=== PATIENT | female | born 1965 | race African-American/Black ===

== ENCOUNTER 2016-07-14 08:06 | Observation (INO) | payer MEDICARE, OTHER ==
[~2016-07-14] VITALS: Ht 167.6 cm; Wt 108.4 kg
[~2016-07-14 08:06] MED LIST: BUPIVACAINE-EPI 0.25%-1:200000 MPF 30 ML VIAL. ONE; CALC-67 PO; CHOL200027 PO; CLINDAMYCIN 900MG PREMIX 50 ML IV ONE; CYAN10005 PO; ESTROGENS, CONJ VAGINAL CREAM 30GM TUBE. ONE; ESTROGENS, CONJ VAGINAL CREAM 30GM TUBE. VG ONE; HYDR-2666 PO; HYDR200T PO; ISOSULFAN BLUE 50 MG/5 ML VIAL. SQ ONE; LIDOCAINE 1%/EPI 1:100,000 20 ML VIAL. ONE; MULT-245 PO; PRED1TAB3 PO
[2016-07-14 08:25] LABS: NEG OBC UR NEG; POS OBC UR POS
[2016-07-14] MEDS ORDERED: FERR-26 PO (08:29)
[2016-07-14] MEDS ORDERED: BELI400V IV (08:29)
[2016-07-14] MEDS: IV RINGERS,LACTATED 1000ML 1,000 ML IV SCH ×2 (08:45→22:46)
--- NOTE | 2016-07-14 09:25 | EKG ---
[facility] [address] [place] [address] Test Date: 2016-07-14 Test Time: 09:25:43 Pat Name: MATTY LUA Department: Room: Gender: F Anesthesiologist: CHE : 1965 Requested By: KENDALL SHAFFER Order Number: [id number] Reading MD: Montrell Pichardo Measurements Intervals [place] Rate: 70 P: 41 LA: 62 QRS: -10 QRSD: 184 T: 2 QT: 490 QTc: 533 Interpretive Statements SINUS RHYTHM Electronically Signed On 07-18-2016 14:11:24 CDT by Montrell Pichardo
[2016-07-14 09:26] LABS: CALCIUM 9.1 mg/dL (8.5-10.1); GFR 71.3; POTASSIUM 3.5 mmol/L (3.5-5.1)
[2016-07-14 09:32] LABS: ALBUMIN 3.3 g/dL (3.4-5.0); ALBUMIN/GLOBULIN RATIO 0.9 (1.0-1.7); TOTAL BILIRUBIN 0.2 mg/dL (0.2-1.0); TOTAL PROTEIN 7.1 g/dL (6.4-8.2)
[2016-07-14 09:37] LABS: BASO # 0.1 x10^3/uL (0.0-0.2); BASO % 1 % (0-3); EOS % 2 % (0-3); HEMATOCRIT 33.9 % (36.0-47.0); HEMOGLOBIN 11.3 g/dL (12.0-15.5); LYMPH # 1.4 x10^3/uL (1.0-4.8); LYMPH % 15 % (24-48); MEAN CORPUSCULAR HEMOGLOBIN 29 pg (25-35); MEAN CORPUSCULAR HGB CONC 33 g/dL (31-37); MEAN CORPUSCULAR VOLUME 88 fL (79-100); MONO % 10 % (0-9); NEUT % 72 % (31-73); PLATELET COUNT 241 x10^3/uL (140-400); RED BLOOD COUNT 3.88 x10^6/uL (3.50-5.40); RED CELL DISTRIBUTION WIDTH 12.7 % (11.5-14.5); WHITE BLOOD COUNT 9.7 x10^3/uL (4.0-11.0)
[2016-07-14] MEDS ORDERED: PROPOFOL 20 ML IV ONE ×2 (10:53→13:16)
[2016-07-14] MEDS ORDERED: LIDOCAINE 2% PF Vial for OR 5 ML VIAL. ONE (10:53)
[2016-07-14] MEDS ORDERED: ONDANSETRON PF 4 MG/2 ML VIAL. ONE (10:53)
[2016-07-14] MEDS ORDERED: DEXAMETHASONE SOD PHOS 20 MG/5 ML VIAL. ONE (10:53)
[2016-07-14] MEDS ORDERED: SEVOFLURANE > 120 MINUTES. IH ONE (10:53)
[2016-07-14] MEDS ORDERED: HYDROCORTISONE SOD SUCC/PF 100 MG/2 ML VIAL. ONE (10:54)
[2016-07-14] MEDS ORDERED: ROCURONIUM 50 MG/5 ML VIAL. ONE (10:54)
[2016-07-14] MEDS ORDERED: fentaNYL PF VIAL 250 MCG/5 ML VIAL ONE (10:54)
[2016-07-14] MEDS ORDERED: GLYCOPYRROLATE 1 MG/5 ML VIAL. ONE (12:57)
[2016-07-14] MEDS ORDERED: NEOSTIGMINE METHYLSULFATE 5 MG/5 ML SYRINGE. ONE (12:57)
--- NOTE | 2016-07-14 13:07 | PDOC ---
BRIEF OPERATIVE NOTE Pre-Op Diagnosis 1. Fibroids 2. Menorrhagia Post-Op Diagnosis Same Procedure Performed LAVH & BSO Surgeon Dr. Dennis Anesthesia Type: General Blood Loss 50 ml Specimens Obtained uterus, cervix, chidi. fallopian tubes and ovaries Findings enlarged, fibroid uterus; nml fallopian tubes and ovaries chidi. Complications none Additional Remarks pt. KENDALL Lopez Jr, MD July 14, 2016 13:07
[2016-07-14] MEDS ORDERED: diphenhydrAMINE HCL 25 MG CAPSULE PO PRN (13:15)
[2016-07-14] MEDS ORDERED: PROCHLORPERAZINE 10 MG/2 ML VIAL. IV PRN ×2 (13:15→13:45)
[2016-07-14] MEDS ORDERED: ZOLPIDEM 5 MG TABLET. PO PRN (13:15)
[2016-07-14] MEDS ORDERED: CALCIUM CARBONATE 500 MG TAB.CHEW PO PRN (13:15)
[2016-07-14] MEDS ORDERED: diphenhydrAMINE 50 MG/ML VIAL IV PRN (13:15)
[2016-07-14] MEDS ORDERED: 0.9 % SODIUM CHLORIDE 10 ML DISP.SYRIN. IV PRN (13:15)
[2016-07-14] MEDS ORDERED: SIMETHICONE 80 MG TAB.CHEW PO PRN (13:15)
[2016-07-14] MEDS ORDERED: ONDANSETRON PF 4 MG/2 ML VIAL. IV PRN ×2 (13:15→13:45)
[2016-07-14] MEDS ORDERED: DEXTROSE 50% 25 GM / 50ML DISP.SYRIN. IV PRN (13:15)
[2016-07-14] MEDS ORDERED: IV RINGERS,LACTATED 1000ML 1,000 ML IV SCH (13:34)
[2016-07-14] MEDS ORDERED: fentaNYL PF VIAL 100 MCG/2 ML VIAL ONE (13:35)
[2016-07-14] MEDS: fentaNYL PF VIAL 100 MCG/2 ML VIAL IV PRN ×4 (13:40→14:19)
[2016-07-14] MEDS ORDERED: HYDROmorphone 2 MG/ML VIAL IV PRN (13:45)
[2016-07-14] MEDS ORDERED: LIDOCAINE 1% 1 ML SYRINGE. ID PRN (13:45)
[2016-07-14] MEDS ORDERED: fentaNYL PF VIAL 100 MCG/2 ML VIAL IV PRN (13:45)
[2016-07-14] MEDS ORDERED: MORPHINE SULFATE 2 MG/ML DISP.SYRIN. IV PRN (13:45)
[2016-07-14] MEDS: KETOROLAC TROMETHAMINE 30 MG/ML INJ. IV PRN ×2 (14:13→20:31)
[2016-07-14 14:45] VITALS: BP 78/50
[2016-07-14 15:00] VITALS: BP 84/56
[2016-07-14 15:20] VITALS: BP 92/58
[2016-07-14 15:45] VITALS: BP 101/64
[2016-07-14 16:45] VITALS: BP 110/66
[2016-07-14] MEDS: oxyCODONE/APAP 5/325 1 TAB TABLET PO PRN (17:45)
--- NOTE | 2016-07-14 18:50 | OP ---
DATE OF SURGERY: 07/14/2016 PREOPERATIVE DIAGNOSES: 1. Fibroids. 2. Menorrhagia. POSTOPERATIVE DIAGNOSES: 1. Fibroids. 2. Menorrhagia. PROCEDURE: LAVH and BSO. SURGEON: Dr. Kendall Dennis. ANESTHESIA: GETA. ESTIMATED BLOOD LOSS: 50 mL. COMPLICATIONS: None. FINDINGS: Enlarged fibroid uterus, normal fallopian tubes and ovaries bilaterally. SUMMARY: A 51-year-old female with history of lupus and also diagnosed with multiple fibroids as well as menorrhagia. The patient is not a candidate for hormonal treatment due to this condition. The patient also has family history of breast cancer. The patient was counseled on need for LAVH, BSO. Risks, benefits and expectations and voiced clear understanding to proceed. DESCRIPTION OF PROCEDURE: The patient was taken to surgery suite and placed in dorsolithotomy position and prepped with Betadine solution for vaginal prep and ChloraPrep for abdominal prep. After adequate anesthesia, bivalve speculum was placed vaginally. Anterior lip of the cervix grasped with a single tooth tenaculum. The Linio uterine manipulator was then placed. The bivalve speculum was removed. Attention was now placed on abdomen. Small transverse skin incision was made just below the umbilicus. The Veress needle was then placed through the infraumbilical incision site. The abdomen was allowed to insufflate up to 1-1/2 liters of CO2 gas. The Veress needle was then removed, 5-mm trocar was placed. The scope was positioned. The uterus was enlarged with multiple fibroids, fallopian tubes and ovaries appeared normal bilaterally. Two additional incisions made in the left lower quadrant, which 5 mm trocars were placed. With the aid of graspers and EnSeal device, the left round ligament was coagulated and dissected. The left infundibulopelvic ligament was coagulated and dissected. Left broad ligament was coagulated and dissected. Same process took place at the right adnexa. Bladder flap was created with blunt dissection along with EnSeal device. Suction irrigation was utilized to verify good hemostasis. We then proceeded vaginally. Weighted speculum and curved [place] placed vaginally. The anterior and posterior lip of the cervix grasped with single tooth tenaculum. Cervix was injected with lidocaine with epinephrine in a circumferential manner. Bovie cautery was utilized to circumscribe the cervix. The vaginal mucosa was dissected away from the lower uterine segment using a moist Ray-Roxy. The cardinal ligaments were clamped bilaterally, cut, and suture ligated with curved Giselle clamps. The posterior cul-de-sac was entered bluntly and was entered sharply with curved Haile scissors. The long weighted speculum was placed. The anterior cul-de-sac was entered bluntly. The uterosacral ligaments were then clamped bilaterally, cut, and suture ligated. The cervix was then bivalved and the remaining portion of the uterus, fallopian tubes and ovaries were removed in their entirety. A modified Bueno's culdoplasty was performed incorporating the uterosacral ligaments bilaterally. The remainder of the vaginal cuff was reapproximated using 2-0 Vicryl suture in a [id number] manner. Moist vaginal packing was placed. Attention was once again placed on abdomen. The abdomen was once again insufflated up to 1-1/2 liters CO2 gas. The vaginal cuff was visualized and was hemostatic. Suction irrigation was utilized to verify good hemostasis along with the vaginal cuff as well as the other pedicles. The ureters were functioning properly. A small amount of normal saline was left in posterior cul-de-sac. The trocars were removed under direct visualization. The abdomen was allowed to deflate as much as possible along with mechanical manipulation. The three skin incisions were reapproximated using 4-0 Vicryl suture in subcuticular manner. 0.25% Marcaine with epinephrine was injected at each incision site. The patient tolerated the procedure well and was taken to recovery room in stable condition. Sponge and needle counts correct x 3. KENDALL DENNIS MD DR: SHREE/shayne JOB#: [id number] / [id number]
[2016-07-14] MEDS: GABAPENTIN 300 MG CAPSULE. PO SCH (22:00)
[2016-07-14 22:38] VITALS: BP 143/85
[2016-07-15 02:32] VITALS: BP 139/92
[2016-07-15 04:25] LABS: BASO % 0 % (0-3); EOS % 0 % (0-3); HEMATOCRIT 30.9 % (36.0-47.0); HEMOGLOBIN 10.1 g/dL (12.0-15.5); LYMPH # 1.4 x10^3/uL (1.0-4.8); LYMPH % 14 % (24-48); MEAN CORPUSCULAR HEMOGLOBIN 29 pg (25-35); MEAN CORPUSCULAR HGB CONC 33 g/dL (31-37); MEAN CORPUSCULAR VOLUME 90 fL (79-100); MONO % 9 % (0-9); NEUT % 77 % (31-73); PLATELET COUNT 194 x10^3/uL (140-400); RED BLOOD COUNT 3.44 x10^6/uL (3.50-5.40); RED CELL DISTRIBUTION WIDTH 12.6 % (11.5-14.5); WHITE BLOOD COUNT 9.8 x10^3/uL (4.0-11.0)
[2016-07-15] MEDS: oxyCODONE/APAP 5/325 1 TAB TABLET PO PRN ×2 (05:47→11:46)
[2016-07-15] MEDS: GABAPENTIN 300 MG CAPSULE. PO SCH (05:48)
[2016-07-15 05:56] VITALS: BP 134/87
--- NOTE | 2016-07-15 09:00 | PDOC ---
SURGICAL PROGRESS NOTE Subjective Pt. feeling well. Pain controlled. SHe is tolerating regular diet. Vital Signs Vital Signs Date Time Temp Pulse Resp B/P (MAP) Pulse Ox O2 Delivery O2 Flow Rate FiO2 07/15/16 05:56 97.9 91 18 134/87 (103) 98 Room Air 97.9 07/14/16 14:45 2.0 I&O Intake and Output 07/15/16 06:59 Intake Total 4550 ml Output Total 1500 ml Balance 3050 ml Intake Oral 1500 ml IV Total 2000 ml Other 1050 ml Output Urine Total 1500 ml PATIENT HAS A BROWN: No General: Alert, Oriented X3, Cooperative HEENT: Atraumatic Lungs: Clear to auscultation Heart: Regular rate Abdomen: Normal bowel sounds, Soft, No tenderness Extremities: No edema Psych/Mental Status: Mental status NL Labs Laboratory Tests Test 07/14/16 08:20 07/14/16 08:45 07/14/16 08:48 07/15/16 03:40 Urine Test Negative (NEG) Sodium Level 145 mmol/L (136-145) Potassium Level 3.5 mmol/L (3.5-5.1) Chloride Level 106 mmol/L (98-107) Carbon Dioxide Level 28 mmol/L (21-32) Anion Gap 11 (6-14) Blood Urea Nitrogen 11 mg/dL (7-20) Creatinine 1.0 mg/dL (0.6-1.0) Estimated GFR (Cockcroft-Gault) 71.3 BUN/Creatinine Ratio 11 (6-20) Glucose Level 82 mg/dL (70-99) Calcium Level 9.1 mg/dL (8.5-10.1) Total Bilirubin 0.2 mg/dL (0.2-1.0) Aspartate Amino Transf (AST/SGOT) 22 U/L (15-37) Alanine Aminotransferase (ALT/SGPT) 19 U/L (14-59) Alkaline Phosphatase 73 U/L (46-116) Total Protein 7.1 g/dL (6.4-8.2) Albumin 3.3 g/dL (3.4-5.0) Albumin/Globulin Ratio 0.9 (1.0-1.7) White Blood Count 9.7 x10^3/uL (4.0-11.0) 9.8 x10^3/uL (4.0-11.0) Red Blood Count 3.88 x10^6/uL (3.50-5.40) 3.44 x10^6/uL (3.50-5.40) Hemoglobin 11.3 g/dL (12.0-15.5) 10.1 g/dL (12.0-15.5) Hematocrit 33.9 % (36.0-47.0) 30.9 % (36.0-47.0) Mean Corpuscular Volume 88 fL (79-100) 90 fL (79-100) Mean Corpuscular Hemoglobin 29 pg (25-35) 29 pg (25-35) Mean Corpuscular Hemoglobin Concent 33 g/dL (31-37) 33 g/dL (31-37) Red Cell Distribution Width 12.7 % (11.5-14.5) 12.6 % (11.5-14.5) Platelet Count 241 x10^3/uL (140-400) 194 x10^3/uL (140-400) Neutrophils (%) (Auto) 72 % (31-73) 77 % (31-73) Lymphocytes (%) (Auto) 15 % (24-48) 14 % (24-48) Monocytes (%) (Auto) 10 % (0-9) 9 % (0-9) Eosinophils (%) (Auto) 2 % (0-3) 0 % (0-3) Basophils (%) (Auto) 1 % (0-3) 0 % (0-3) Neutrophils # (Auto) 7.0 x10^3uL (1.8-7.7) 7.6 x10^3uL (1.8-7.7) Lymphocytes # (Auto) 1.4 x10^3/uL (1.0-4.8) 1.4 x10^3/uL (1.0-4.8) Monocytes # (Auto) 1.0 x10^3/uL (0.0-1.1) 0.8 x10^3/uL (0.0-1.1) Eosinophils # (Auto) 0.2 x10^3/uL (0.0-0.7) 0.0 x10^3/uL (0.0-0.7) Basophils # (Auto) 0.1 x10^3/uL (0.0-0.2) 0.0 x10^3/uL (0.0-0.2) Laboratory Tests Test 07/15/16 03:40 White Blood Count 9.8 x10^3/uL (4.0-11.0) Red Blood Count 3.44 x10^6/uL (3.50-5.40) Hemoglobin 10.1 g/dL (12.0-15.5) Hematocrit 30.9 % (36.0-47.0) Mean Corpuscular Volume 90 fL (79-100) Mean Corpuscular Hemoglobin 29 pg (25-35) Mean Corpuscular Hemoglobin Concent 33 g/dL (31-37) Red Cell Distribution Width 12.6 % (11.5-14.5) Platelet Count 194 x10^3/uL (140-400) Neutrophils (%) (Auto) 77 % (31-73) Lymphocytes (%) (Auto) 14 % (24-48) Monocytes (%) (Auto) 9 % (0-9) Eosinophils (%) (Auto) 0 % (0-3) Basophils (%) (Auto) 0 % (0-3) Neutrophils # (Auto) 7.6 x10^3uL (1.8-7.7) Lymphocytes # (Auto) 1.4 x10^3/uL (1.0-4.8) Monocytes # (Auto) 0.8 x10^3/uL (0.0-1.1) Eosinophils # (Auto) 0.0 x10^3/uL (0.0-0.7) Basophils # (Auto) 0.0 x10^3/uL (0.0-0.2) Assessment/Plan A: POD#1 s/p LAVH & BSO P: D/c home. Problems: KENDALL SHAFFER Jr, MD July 15, 2016 09:00
--- NOTE | 2016-07-15 09:01 | DISCH ---
DISCHARGE INSTRUCTIONS Condition on Discharge Condition on Discharge: Stable Activity After Discharge Activity Instructions for Disc: Activity as tolerated Lifting Instructions after Dis: No heavy lifting Driving Instructions after Dis: No driving for 2 weeks Diet after Discharge Diet after Discharge: Regular Contacting the DRLotus after DC Call your doctor for: Concerns you may have Follow-Up Follow up with: Dr. Dennis in 2 weeks. KENDALL DENNIS Jr, MD July 15, 2016 09:01
[2016-07-15] MEDS ORDERED: OXYC-323 PO (09:03)
[2016-07-15] MEDS ORDERED: IBUP-1060 PO (09:03)
[2016-07-15] MEDS ORDERED: DOCU-27 PO (09:03)
[2016-07-15 11:30] VITALS: BP 148/89
--- NOTE | 2016-07-18 15:23 | PATHOLOGY ---
PATHOLOGY REPORT * * * * * * * * FINAL DIAGNOSIS: Uterine corpus with bilateral attached fallopian tubes and ovaries and separate detached uterine cervix, laparoscopic assisted vaginal hysterectomy with bilateral salpingo-oophorectomy: - Leiomyomas, uterine corpus, intramural, multiple, the largest measuring 2.7 cm in greatest dimension (uterine weight 229 grams). - Chronic cervicitis with focal squamous metaplasia. - Endometrial polyps. - Proliferative endometrium. - Adenomyosis, uterine corpus, focal. - Cystic [place] rest of right fallopian tube. - Focal endometriosis of left ovary. COMMENT: There is no evidence of malignancy. (JPM:mgzina; d/t: 07/18/16) REPORT ELECTRONICALLY SIGNED BY: Clark Pineda M.D. DATE/TIME: 07/18/2016 15:23 * * * * * * * * GROSS PATHOLOGY: The specimen is received in formalin labeled "Matty Wagner, uterus, cervix, bilateral tubes and ovaries "". Received is a 174 g, 7.6 x 7.6 x 5.9 cm uterine corpus with attached adnexa weighing 5 and 6 g, left and right, respectively, and separately submitted cervical stump weighing 55 g. The uterine serosa is pink-ness, smooth and glistening in appearance. The specimen is oriented using adnexal placement. The specimen is opened laterally to reveal a triangular-appearing endometrial cavity measuring 2.1 cm in length by 2.7 cm in width. The endometrium is pale ness, glistening in appearance and measures 0.1 cm in thickness displaying multiple polyps ranging in size from 0.6 to 1.0 cm. Serial sectioning reveals a ness-pink, trabeculated myometrium measuring up to 4.6 cm in thickness displaying multiple intramural fibroids ranging in size from 1.8 to 2.7 cm. The cervical stump has been previously laterally incised and measures 6.8 x 3.2 x 3.2 cm upon reconstruction. The 1.0 cm cervical os is surrounded by pale ness to ness-brown, smooth ectocervical mucosa. The specimen is oriented using the peritoneal reflection and the anterior paracervical margin is inked black. The specimen is further opening to reveal a red-ness endocervical canal measuring 5.5 cm in length. The left adnexa consists of a fimbriated fallopian tube measuring 4.4 cm in length by 0.5 cm in diameter attached to a 2.8 x 1.5 x 1.0 cm ovary. The fallopian tube appears grossly unremarkable and sectioning through the ovary reveals pale ness, normal ovarian stroma. The right adnexa consists of a fimbriated fallopian tube measuring 5.4 cm in length by 0.5 cm in diameter attached to a 2.0 x 1.3 x 1.1 cm ovary. The fallopian tube displays a single attached paratubal cyst measuring 0.1 cm and appears otherwise grossly unremarkable. Sectioning through the ovary reveals pale ness, normal ovarian stroma. 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 (CAA; 07/15/2016) INITIAL CPT CODE(S): A; 55415 Professional services performed [place] [address] Technical services performed by [facility] at [address] [place] [address]. SPECIMEN(S) RECEIVED: A.Uterus,cervix, bilateral tubes, and ovaries CLINICAL HISTORY: None provided PATIENT: MATTY WAGNER /AGE: 12 1965 (Age: 51) PATIENT #: [id number] ALT CASE #: SPECIMEN COLLECTION DATE: 07/14/2016 SPECIMEN RECEIVED DATE: 07/14/2016 [facility] - [address] [place] [address] - PHONE: [phone] * * * END OF REPORT * * *
== END 2016-07-15 12:00 | disposition home or self-care (01) ==
LOC: SURG 08:06 → 3 NORTH 13:25
PROVIDERS: ADMIT Obstetrics & Gynecology; ATTEND Obstetrics & Gynecology
DX: N92.0 Excessive and frequent menstruation with regular cycle (principal); D25.9 Leiomyoma of uterus, unspecified
CPT/HCPCS: 36415; 58552; 80053; 81025; 85027; 86850; 86900; 86901; 93005; 96374; A4215; G0378; G0379; J1100; J1720; J1885; J2405; J2704; J2710; J3010; J3490; J7030; J7120; 88307; Q9968

== ENCOUNTER → 2017-03-21 | Day surgery (SDC) | payer MEDICARE, OTHER ==
[~2017-03-21] MED LIST changes: -BUPIVACAINE-EPI 0.25%-1:200000 MPF 30 ML VIAL. ONE; -CALC-67 PO; -CHOL200027 PO; -CLINDAMYCIN 900MG PREMIX 50 ML IV ONE; -CYAN10005 PO; -ESTROGENS, CONJ VAGINAL CREAM 30GM TUBE. ONE; -ESTROGENS, CONJ VAGINAL CREAM 30GM TUBE. VG ONE; -HYDR-2666 PO; -HYDR200T PO; -ISOSULFAN BLUE 50 MG/5 ML VIAL. SQ ONE; +LIDOCAINE 1% PF 2 ML VIAL. ID; -LIDOCAINE 1%/EPI 1:100,000 20 ML VIAL. ONE; +MIDAZOLAM HCL/PF 2 MG/2 ML VIAL. IV; -MULT-245 PO; -PRED1TAB3 PO; +PROPOFOL 20 ML IV; +PROPOFOL 40 ML IV; +fentaNYL PF VIAL 100 MCG/2 ML VIAL IV
[2017-03-21] MEDS: IV RINGERS,LACTATED 1000ML 1,000 ML IV (09:31)
== END | disposition home or self-care (01) ==
LOC: ENDOS 09:01
DX: Z12.11 Encounter for screening for malignant neoplasm of colon (principal); F41.9 Anxiety disorder, unspecified; I10 Essential (primary) hypertension; Z87.39 Personal history of other diseases of the musculoskeletal system and connective tissue; Z98.51 Tubal ligation status; Z86.39 Personal history of other endocrine, nutritional and metabolic disease; Z88.1 Allergy status to other antibiotic agents; Z87.440 Personal history of urinary (tract) infections
CPT/HCPCS: G0121; J2704

== ENCOUNTER → 2018-08-24 | Day surgery (SDC) | payer OTHER ==
[~2018-08-24] MED LIST changes: +BELI400V IV; +BENLYSTA; +CALC-31 PO; +CHOL200027 PO; +CYAN10005 PO; +DEXAMETHASONE SOD PHOS 4 MG/ML VIAL ONE; +DOCU-109 PO; +FERR325T14 PO; +GABA300C18 PO; +GABAPENTIN 300 MG CAPSULE. PO ONE; +HYDR-2761 PO; +HYDR200T71 PO; +HYDROmorphone 2 MG/ML VIAL IV PRN; +IBUP-1007 PO; +IBUP-1060 PO; +IV RINGERS,LACTATED 1000ML 1,000 ML IV SCH; +KETOROLAC 30 MG/ML INJ FOR OR. INJ ONE; -LIDOCAINE 1% PF 2 ML VIAL. ID; +LIDOCAINE 2% JELLY 6ML IN APPLICATOR. ONE; +LIDOCAINE 2% PF 5 ML VIAL. ONE; +LOSA-73 PO; +LOSA100T14 PO; -MIDAZOLAM HCL/PF 2 MG/2 ML VIAL. IV; +MIDAZOLAM HCL/PF 2 MG/2 ML VIAL. ONE; +MORPHINE SULFATE 2 MG/ML VIAL. IV PRN; +MULT-245 PO; +ONDANSETRON PF 4 MG/2 ML VIAL. IV PRN; +ONDANSETRON PF 4 MG/2 ML VIAL. ONE; +OXYC1TAB15 PO; +PRED1TAB3 PO; +PROCHLORPERAZINE 10 MG/2 ML VIAL. IV PRN; -PROPOFOL 20 ML IV; +PROPOFOL 20 ML IV ONE; -PROPOFOL 40 ML IV; +SEVOFLURANE 31 TO 60 MINUTES. IH ONE; +TRAM50TA PO; -fentaNYL PF VIAL 100 MCG/2 ML VIAL IV; +fentaNYL PF VIAL 100 MCG/2 ML VIAL IV PRN; +fentaNYL PF VIAL 100 MCG/2 ML VIAL ONE
--- NOTE | 2018-08-24 14:08 | PDOC ---
BRIEF OPERATIVE NOTE Date: Aug 24, 2018 Pre-Op Diagnosis 1. Dysuria 2. Cystitis Post-Op Diagnosis Same + Interstitial Cystitis Procedure Performed Cystoscopy Surgeon Dr. Dennis Anesthesia Type: General Blood Loss less than 5 ml Specimens Obtained none Findings glomerulations with petechiae; nml ureterovesicle outlets Complications none Operative Note see dictation KENDALL DENNIS Jr, MD Aug 24, 2018 14:08
--- NOTE | 2018-08-24 14:11 | DISCH ---
DISCHARGE INSTRUCTIONS Condition on Discharge Condition on Discharge: Stable Activity After Discharge Activity Instructions for Disc: Activity as tolerated, Other, see below Driving Instructions after Dis: Do not drive today Weight Bearing Status after Di: No restrictions Diet after Discharge Diet after Discharge: Regular Wound Incision Care Wound/Incision Care: May get incision wet, Other, see below Contacting the DRLotus after DC Call your doctor for: Concerns you may have Follow-Up Follow up with: Dr. Dennis in 1 week. KENDALL DENNIS Jr, MD Aug 24, 2018 14:11
--- NOTE | 2018-08-24 14:17 | OP ---
DATE OF SURGERY: PREOPERATIVE DIAGNOSES: 1. Dysuria. 2. Cystitis. POSTOPERATIVE DIAGNOSES: 1. Dysuria. 2. Cystitis. 3. Interstitial cystitis. PROCEDURE: Cystoscopy. SURGEON: Nahum Dennis MD ANESTHESIA: GETA. ESTIMATED BLOOD LOSS: Less than 5 mL. COMPLICATIONS: None. FINDINGS: Glomerulations with petechiae indicative of interstitial cystitis, normal ureterovesical junctions. SUMMARY: A 53-year-old with long history of dysuria and cystitis and was counseled on risks, benefits and expectations of cystoscopy with hydrodistention. She was counseled on risks, benefits and expectations and voiced clear understanding to proceed. DESCRIPTION OF PROCEDURE: The patient was taken to surgery suite and placed in dorsal lithotomy position, was prepped with Betadine solution, draped in sterile fashion. After adequate anesthesia, cystoscopy was performed. There were several glomerulations and petechiae indicative of interstitial cystitis. The bladder was then instilled with normal saline up to about 400 mL in which this was held for 2-3 minutes and then the bladder was then drained of the normal saline. This was performed 3 times. At the end, the bladder was fully drained and 6 mL of lidocaine was placed with the urethral jet directly into the bladder. The patient tolerated the procedure well and was taken to recovery room in stable condition. Sponge count correct x 3. NAHUM DENNIS MD DR: SHREE/shayne JOB#: [id number] / [id number]
[2018-08-24 14:37] VITALS: BP 182/99
== END ==
LOC: SURG 11:37
PROVIDERS: ATTEND Obstetrics & Gynecology
DX: N30.10 Interstitial cystitis (chronic) without hematuria (principal); Z87.39 Personal history of other diseases of the musculoskeletal system and connective tissue; Z90.710 Acquired absence of both cervix and uterus; Z90.722 Acquired absence of ovaries, bilateral; Z88.1 Allergy status to other antibiotic agents
CPT/HCPCS: 52260; A7015; J1100; J1885; J2001; J2250; J2405; J2704; J3010; J7030